=== PATIENT | female | born 1955 | race Caucasian/White ===

== ENCOUNTER → 2024-02-10 10:08 | Outpatient (REF) | payer MEDICARE, SELFPAY ==
[2024-02-10 11:17] LABS: % Basophils 0.7 % (0-2); % Eosinophils 8.9 % (0-6); % Immature Granulocytes 0.7 % (0-0.5); % Lymphocytes 19.8 % (20.5-51.1); % Monocytes 9.2 % (1.7-9.3); % Neutrophils 60.7 % (42.2-75.2); Absolute Eosinophils 0.4 10^3/uL (0-0.7); Absolute Lymphocytes 0.8 10^3/uL (1.2-3.4); Absolute Monocytes 0.4 10^3/uL (0.1-0.6); Absolute Neutrophils 2.5 10^3/uL (1.4-6.5); Hematocrit 41.5 % (37.0-47.0); Hemoglobin 14.1 g/dL (12.0-16.0); Mean Corpuscular Volume 94.3 fL (81.0-99.0); Mean Platelet Volume 13.2 fL (7.4-10.4); Nucleated Red Blood Cells % 0 %; Platelet Count 131 10^3/uL (130-400); Red Cell Dist. Width 11.9 % (11.5-14.5); White Blood Cell Count 4.1 10^3/uL (4.8-10.8)
[2024-02-10 12:07] LABS: ALT (SGPT) 28 U/L (0-35); AST (SGOT) 30 U/L (14-36); Albumin 4.2 g/dl (3.5-5.0); Alkaline Phosphatase 79 U/L (38-126); Blood Urea Nitrogen 20 mg/dl (7-17); Calcium 9.5 mg/dl (8.4-10.2); Carbon Dioxide 27 mmol/L (22-30); Chloride 108 mmol/L (98-107); Glucose 97 mg/dl (70-99); Potassium 4.4 mmol/L (3.5-5.1); Sodium 141 mmol/L (135-145); Total Bilirubin 0.8 mg/dl (0.2-1.3); Total Protein 7.2 g/dl (6.3-8.2); eGFR 55.07
[2024-02-11 19:02] LABS: CA 27-29 12.5 U/mL (<=39.0)
== END ==
LOC: REG 10:08
PROVIDERS: ATTENDING PHYSICIAN Internal Medicine Hematology & Oncology; FAMILY PHYSICIAN Family Medicine
DX: C50.919 Malignant neoplasm of unspecified site of unspecified female breast (principal); R74.02 Elevation of levels of lactic acid dehydrogenase [LDH]
CPT/HCPCS: 36415; 80053; 85025; 86300

== ENCOUNTER → 2024-05-04 11:43 | Outpatient (REF) | payer MEDICARE, SELFPAY | LOC: WDC 11:43 | PROVIDERS: ATTENDING PHYSICIAN Internal Medicine Hematology & Oncology; FAMILY PHYSICIAN Family Medicine | DX: Z12.31 Encounter for screening mammogram for malignant neoplasm of breast (principal) | CPT/HCPCS: 77063; 77067 ==

== ENCOUNTER → 2025-05-05 12:06 | Outpatient (REF) | payer MEDICARE, SELFPAY | LOC: WDC 12:06 | PROVIDERS: ATTENDING PHYSICIAN Internal Medicine Hematology & Oncology; FAMILY PHYSICIAN Family Medicine | DX: Z12.31 Encounter for screening mammogram for malignant neoplasm of breast (principal); Z85.3 Personal history of malignant neoplasm of breast; C50.919 Malignant neoplasm of unspecified site of unspecified female breast | CPT/HCPCS: 77063; 77067 ==

== ENCOUNTER 2025-09-06 20:30 | Emergency (ER) | payer MEDICARE, SELFPAY ==
[2025-09-06 20:33] VITALS: BP 160/87
[2025-09-06 21:01] LABS: Hematocrit 38.5 % (37.0-47.0); Hemoglobin 12.5 g/dL (12.0-16.0); Mean Corp Hgb Conc. 32.5 g/dL (33.0-37.0); Mean Corpuscular Volume 96.3 fL (81.0-99.0); Nucleated Red Blood Cells % 0 %; Platelet Count 124 10^3/uL (130-400); Red Cell Dist. Width 12.1 % (11.5-14.5)
[2025-09-06 21:17] LABS: COVID-19 Antigen Negative (Negative)
[2025-09-06 21:22] LABS: ALT (SGPT) 50 U/L (0-35); AST (SGOT) 30 U/L (14-36); Albumin 4.1 g/dl (3.5-5.0); Alkaline Phosphatase 66 U/L (38-126); Blood Urea Nitrogen 23 mg/dl (7-17); Calcium 8.8 mg/dl (8.4-10.2); Carbon Dioxide 30 mmol/L (22-30); Chloride 107 mmol/L (98-107); Glucose 107 mg/dl (70-99); Potassium 4.1 mmol/L (3.5-5.1); Sodium 141 mmol/L (135-145); Total Protein 7.0 g/dl (6.3-8.2); eGFR 49.00
[2025-09-06 22:25] VITALS: BP 147/82; BMI 33.1
--- NOTE | 2025-09-06 23:30 | ED.GENMED ---
History of Present Illness
General
Chief Complaint: Cold/Flu/URI Symptoms
Source: patient
Exam Limitations: none
Time Seen by Provider: 09/06/25 23:01
Nursing documentation reviewed up to this point in time: agreed with
History of Present Illness
History of Present Illness:
This is a 70-year-old female with a past medical history of bariatric surgery, hyperlipidemia, breast cancer, who presents to the ER today with concerns of sore throat, ear pain, and swollen lymph nodes. She reports that this started 3 days ago and
has been progressively getting worse. She reports that she also has intermittent headache that is of minimal relief with Tylenol. She does report that she recently saw her grandson who was sick with a runny nose and cough. She saw her primary
care provider the other day who recommended cough drops which did not help. She was tested for strep throat at that time which was negative and she was told she has white spots in her throat. She reports pain with swallowing. She denies any
drainage from the ears. She denies any fevers or chills. She denies any facial pain or swelling, shortness of breath, chest pain.
Review of Systems
Review of Systems
All Other Systems: ROS reviewed and negative except as documented in HPI and ROS
Phy Exam
Physical Exam
Physical Exam:
General: Patient is well appearing and in no acute distress; non-toxic
Skin: Warm and dry, no rashes or lesions. No facial swelling or erythema
Head: Normocephalic, atraumatic, no tenderness to palpation over the parotid gland
Eyes: Sclera non-icteric. EOMs intact.
Ears: Right�mild preauricular tenderness noted, no tenderness with manipulation of the auricle, no mastoid tenderness, no swelling or erythema of the external auditory canal, no redness or swelling of the TM. Left�exam unremarkable no swelling or
redness of the left external auditory canal, no drainage, TM unremarkable.
Mouth: Uvula midline, pharyngeal erythema and tonsillar hypertrophy noted, questionable exudate vs tonsil stone noted to right tonsil
Neck: Neck is supple. Right sided tender anterior cervical lymphadenopathy, no submandibular lymphadenopathy, no preauricular lymphadenopathy
Cardiac: Regular rate and rhythm, no murmurs
Peripheral Vascular: No lower extremity swelling or edema
Pulm: Normal respiratory effort, no wheezes, rales, rhonchi
Neuro: CN II-XII intact, no focal neurologic deficits. Normal gait.
Psychiatric: Appropriate mood and affect.
Course
Orders/Labs/Results
Orders:
Orders
09/06/25 20:46
COVID-19 Antigen Urgent
Source: Nasal Swab
Complete Blood Count/With Diff Urgent
Comprehensive Metabolic Panel Urgent
Influenza A+B Rapid Molecular Urgent
[place] Source: Nasal Swab
Specimen Description:
09/06/25 23:28
Dexamethasone Sod Phosphate [Decadron] 10 mg IV NOW STA
Diphenhydramine [Benadryl] 12.5 mg IV NOW STA
Metoclopramide [Reglan] 10 mg IV NOW STA
09/07/25 01:00
Lidocaine Visc/Maalox/Benadryl [Magic or Miracle Mouthwash] 10 ml PO ONCE ONE
Abnormal Lab Results
09/06/25
20:46
RBC 4.00 L 10^6/uL
(4.20-5.40)
MCH 31.3 H pg
(27.0-31.0)
MCHC 32.5 L g/dL
(33.0-37.0)
Plt Count 124 L 10^3/uL
(130-400)
MPV 12.7 H fL
(7.4-10.4)
Absolute Lymphs (auto) 0.6 L 10^3/uL
(1.2-3.4)
Lymphocytes % 12.3 L %
(20.5-51.1)
Monocytes % 12.8 H %
(1.7-9.3)
BUN 23 H mg/dl
(7-17)
Creatinine 1.2 H mg/dL
(0.6-1.0)
Glucose 107 H mg/dl
(70-99)
ALT 50 H U/L
(0-35)
09/06/25 20:46
09/06/25 20:46
Vital Signs
Initial and Last Documented VS:
Initial Vital Signs
Temp Pulse Resp BP Pulse Ox
98.3 F 85 18 160/87 100
09/06/25 20:33 09/06/25 20:33 09/06/25 20:33 09/06/25 20:33 09/06/25 20:33
Last Documented Vital Signs
Temp Pulse Resp BP Pulse Ox
98.3 F 70 18 147/82 98
09/06/25 20:33 09/06/25 22:26 09/06/25 22:26 09/06/25 22:25 09/06/25 23:30
MDM/Problems Addressed
Differential Diagnosis Includes:
ddx include viral pharyngitis, bacterial tonsillitis, parotiditis, allergic rhinitis, TMJ dysfunction, URI
MDM/Problems Addressed:
70-year-old female with a past medical history of hyperlipidemia, breast cancer, previous history of bariatric surgery presents to the ER today with concerns of a sore throat, headache, earache. Of note, she was in contact with her grandson and he
was sick with generalized upper respiratory symptoms. Today, she is well-appearing in no acute distress. She is afebrile. She does have right sided tender anterior cervical lymphadenopathy. Her right ear exam is unremarkable, there is no
tenderness or swelling, no bulging of the right TM no mastoid tenderness. She has also complained that sometimes she has pain on her right cheek however there is no palpable fluctuance over the parotid gland or erythema.
I did offer patient CAT scan to look for parotits/abscess etc vs deeper infection however patient declines. I think this is reasonable considering that she has no swelling on exam, no palpable induration, full range of motion of her neck, is able
to swallow at this time no trismus. Magic mouthwash did help her symptoms a lot. She did have negative strep at pcp. Considering her pain with pharyngitis tonsillar hypertrophy on exam, centor 2, will initiate course of abx as well as steroids
patient does have hx of bariatric surgery reviewed with ED attending will give with pepcid. Discussed follow up with pcp in one week for reassessment and ENT evaluation. Discussed strict return precautions patient stable for discharge.
Centor score 2.
Chronic conditions affecting care:
hx of breast cancer in remission (had lumpectomy and lymph nodes removed in 2014), bariatric surgery, hlp
*Pulse Oximetry
SaO2: 98
Oxygen Mode of Delivery: Room air
Patient hypoxic: no
*Critical Care Note
Total Time (30-74mins, 75-104mins- exclusive of procedures): Not Applicable
Data Reviewed
Source: patient and records
ED Attending Note
-
Portions of this chart may have been created with voice recognition software.� Occasional wrong word or��sound alike� substitutions may have occurred due to the inherent limitations of voice recognition software.
Discharge Plan
Departure
Patient Disposition: Home (Routine Discharge)
Date of Disposition: 09/07/25
Time of Disposition: 01:04
Patient with high blood pressure during this ER visit?: Yes
Condition: Good
Discharge Problem:
Acute pharyngitis, Cervical adenopathy
Instructions: Sore throat in adults, Swollen lymph nodes in adults
Prescriptions:
New
methylprednisolone [Medrol (Toñito)] 4 mg tablets,dose pack
See Rx Instructions .ROUTE .COMPLEX Qty: 21 0RF
Rx Instructions:
orally per package directions
amoxicillin-pot clavulanate 875-125 mg tablet
1 tab PO BID 7 Days Qty: 14 0RF
famotidine [Pepcid] 20 mg tablet
20 mg PO DAILY Qty: 20 0RF
Referrals:
Darlyn Oseguera, [Family Provider, Family Practice]
Activity Restrictions/Additional Instructions:
Augmentin has been sent to your pharmacy. Please take 1 tablet twice daily for 7 days. Medrol Dosepak has also been sent to your pharmacy. I recommend taking pepcid one tablet once daily while taking the steroid.
Please follow up with your primary care provider.
PLEASE RETURN TO THE ER SHOULD YOU DEVELOP REDNESS OR SWELLING IN THE FACE, INCREASING PAIN, DROOLING/HOARSENESS OF THE VOICE, INABILITY TO SWALLOW, FEVERS OR CHILLS, CHEST PAIN, SHORTNESS OF BREATH, OR ANY OTHER SIGNS OR SYMPTOMS WORRISOME TO YOU.
Interventions
Interventions:
*Risk Screen - Suicide Last Done: 09/06/25 20:35
*General Assessment Last Done: 09/06/25 20:35
*Neglect/Abuse Screening Last Done: 09/06/25 22:26
*ED- Fall Risk Assessment Last Done: 09/06/25 22:26
*ED COVID-19 Vaccine History Last Done: 09/06/25 20:35
*ED Influenza Vaccine History Last Done: 09/06/25 20:35
*Nursing Disposition Last Done: 09/07/25 01:14
ED- Pulmonary Assessment Last Done: 09/06/25 22:28
Discharge Date and Time
Discharge Date/Time: 09/07/25 01:18
Print Language: URDU
[2025-09-06] MEDS: DECADRON 10 MG IV (23:46)
[2025-09-06] MEDS: BENADRYL 12.5 MG IV (23:47)
[2025-09-06] MEDS: REGLAN 10 MG IV (23:47)
[2025-09-07] MEDS: MAGIC OR MIRACLE MOUTHWASH 10 ML PO (00:33)
== END 2025-09-07 01:18 | disposition home or self-care (01) ==
LOC: EMR 20:30
PROVIDERS: Student in an Organized Health Care Education/Training Program; EMERGENCY PHYSICIAN Emergency Medicine; FAMILY PHYSICIAN Family Medicine
DX: J02.9 Acute pharyngitis, unspecified (principal); R59.0 Localized enlarged lymph nodes; R03.0 Elevated blood-pressure reading, without diagnosis of hypertension; E78.5 Hyperlipidemia, unspecified; Z85.3 Personal history of malignant neoplasm of breast; Z98.84 Bariatric surgery status
CPT/HCPCS: 99284; 96374; 96375 ×2; 80053; 85025; 87502; 87811